=== PATIENT | male | born 1960 | race African-American/Black ===

== ENCOUNTER 2023-01-12 17:08 | Emergency (ER) | payer MEDICAID ==
[~2023-01-12] VITALS: Ht 172.7 cm; Wt 78.0 kg
[~2023-01-12 17:08] MED LIST: ABIL5 PO; ASPI-1160 PO; ATOR10TA PO; Docusate Sodium PO; GABA-532 PO; QUET100T PO; Thiamine Hcl PO
[2023-01-12] MEDS ORDERED: NITROGLYCERIN 0.4MG TABLET SL SL PRN (17:30)
[2023-01-12] MEDS ORDERED: ASPIRIN 81MG TABLET PO ONE (17:30)
[2023-01-12 17:52] LABS: BASOPHILS % 0.7 % (0.0-2.0); EOSINOPHILS % 4.2 % (0.0-5.0); HEMATOCRIT. 46.8 % (42.0-52.0); HEMOGLOBIN. 15.5 g/dL (14.0-18.0); LYMPHOCYTES % 18.4 % (20.0-50.0); MEAN CORPUSCULAR HEMOGLOBIN 30.5 pg (28.0-32.0); MEAN CORPUSCULAR VOLUME 92.4 fL (80.0-94.0); MEAN PLATELET VOLUME 8.8 fl (7.4-10.4); MONOCYTES % 11.3 % (2.0-8.0); NEUTROPHILS % 65.4 % (40.0-76.0); PLATELET 249 x1000/uL (130-400); RED BLOOD CELL COUNT 5.06 mill/uL (4.7-6.1); RED CELL DISTRIBUTION WIDTH 12.7 % (11.6-14.6)
[2023-01-12 18:01] LABS: CHLORIDE 100 mEq/L (98-107)
[2023-01-12 18:13] LABS: ETHANOL BLOOD < 10 mg/dL
[2023-01-12] MEDS ORDERED: IBUP-2029 MT (20:46)
[2023-01-12 21:13] VITALS: BP 123/63
[2023-01-13] MEDS ORDERED: TOPUD PO (07:34)
== END 2023-01-12 21:17 | disposition home or self-care (01) ==
LOC: ER 17:08
DX: R07.9 Chest pain, unspecified (principal)
CPT/HCPCS: 36415; 71045; 80053; 80320; 83880; 84484; 85025; 93005; 99285; G0480

== ENCOUNTER 2023-01-13 00:24 | Emergency (ER) | payer MEDICAID ==
[~2023-01-13] VITALS: Ht 160 cm; Wt 59.0 kg
[~2023-01-13 00:24] MED LIST changes: +IBUP-2029 MT
[2023-01-13 01:56] VITALS: BP 128/90
[2023-01-13] MEDS ORDERED: TOPUD PO (07:34)
== END 2023-01-13 02:53 | disposition left against medical advice (07) ==
LOC: ER 00:24 → CANBEDREQ 10:01
DX: R07.9 Chest pain, unspecified (principal); I10 Essential (primary) hypertension; Z79.82 Long term (current) use of aspirin; Z86.73 Personal history of transient ischemic attack (TIA), and cerebral infarction without residual deficits
CPT/HCPCS: 93005; 99283; Z7610

== ENCOUNTER 2023-01-13 04:01 | Emergency (ER) | payer MEDICAID ==
[~2023-01-13] VITALS: Ht 160 cm; Wt 73.0 kg
[2023-01-13 04:16] VITALS: BP 133/88
[2023-01-13 06:43] LABS: BASOPHILS % 0.6 % (0.0-2.0); HEMATOCRIT. 43.4 % (42.0-52.0); HEMOGLOBIN. 14.3 g/dL (14.0-18.0); MEAN CORPUSCULAR HEMOGLOBIN 30.4 pg (28.0-32.0); MEAN CORPUSCULAR VOLUME 92.2 fL (80.0-94.0); MONOCYTES % 14.8 % (2.0-8.0); NEUTROPHILS % 65.6 % (40.0-76.0); PLATELET 206 x1000/uL (130-400); RED BLOOD CELL COUNT 4.71 mill/uL (4.7-6.1); RED CELL DISTRIBUTION WIDTH 12.8 % (11.6-14.6)
[2023-01-13 06:58] LABS: CHLORIDE 100 mEq/L (98-107)
[2023-01-13] MEDS ORDERED: TOPUD PO (07:34)
== END 2023-01-13 07:50 | disposition home or self-care (01) ==
LOC: ER 04:01
DX: R07.9 Chest pain, unspecified (principal); I10 Essential (primary) hypertension; Z86.73 Personal history of transient ischemic attack (TIA), and cerebral infarction without residual deficits; Z79.82 Long term (current) use of aspirin
CPT/HCPCS: 36415; 71045; 80053; 83880; 84484; 85025; 99284